=== PATIENT | male | born 1945 | race Two or more races ===

== ENCOUNTER 2019-08-16 15:30 | Outpatient (CLI) | payer OTHER | END 2019-08-16 15:34 | disposition home or self-care (01) | LOC: LAB 15:30 | DX: R97.20 Elevated prostate specific antigen [PSA] (principal) ==

== ENCOUNTER → 2019-09-21 | Outpatient (CLI) | payer OTHER | END | disposition home or self-care (01) | LOC: SONOGRAMA 08:09 | DX: R97.20 Elevated prostate specific antigen [PSA] (principal) ==